=== PATIENT | male | born 1950 | race Caucasian/White ===

== ENCOUNTER → 2016-07-04 | Outpatient (CLI) | payer OTHER ==
[2016-07-04 18:38] LABS: WHITE BLOOD COUNT 10.4 K/mm3 (4.0-10.0)
[2016-07-04 18:39] LABS: MEAN CORPUSCULAR HEMOGLOBIN 26.1 pg (27.0-33.0); MEAN CORPUSCULAR HGB CONC 30.9 g/dl (32.0-36.5); MEAN CORPUSCULAR VOLUME 84.7 fl (80.0-96.0); RED CELL DISTRIBUTION WIDTH 15.5 % (11.5-14.5)
[2016-07-04 19:56] LABS: ANION GAP 10 MEQ/L (8-16); BLOOD UREA NITROGEN 11 MG/DL (7-18); CALCIUM LEVEL 8.4 MG/DL (8.8-10.2); CARBON DIOXIDE LEVEL 29 MEQ/L (21-32); CHLORIDE LEVEL 98 MEQ/L (98-107); CREATININE FOR GFR 0.68 MG/DL (0.70-1.30); GLOMERULAR FILTRATION RATE > 60.0 (>49); GLUCOSE, FASTING 130 MG/DL (80-110); POTASSIUM SERUM 4.4 MEQ/L (3.5-5.1); SODIUM LEVEL 137 MEQ/L (136-145)
== END ==
LOC: M LAB 20:00
PROVIDERS: ATTEND Internal Medicine Hematology & Oncology
DX: I25.10 Atherosclerotic heart disease of native coronary artery without angina pectoris (principal); I48.0 Paroxysmal atrial fibrillation

== ENCOUNTER → 2016-07-04 | Outpatient (CLI) | payer OTHER ==
[2016-07-04 18:38] LABS: MEAN CORPUSCULAR HEMOGLOBIN 26.1 pg (27.0-33.0); MEAN CORPUSCULAR HGB CONC 30.9 g/dl (32.0-36.5); MEAN CORPUSCULAR VOLUME 84.7 fl (80.0-96.0); PLATELET COUNT, AUTOMATED 358 k/mm3 (150-450); RED CELL DISTRIBUTION WIDTH 15.5 % (11.5-14.5); WHITE BLOOD COUNT 10.4 K/mm3 (4.0-10.0)
[2016-07-04 19:58] LABS: ANION GAP 8 MEQ/L (8-16); BLOOD UREA NITROGEN 11 MG/DL (7-18); CALCIUM LEVEL 8.4 MG/DL (8.8-10.2); CARBON DIOXIDE LEVEL 31 MEQ/L (21-32); CHLORIDE LEVEL 98 MEQ/L (98-107); CREATININE FOR GFR 0.72 MG/DL (0.70-1.30); GLOMERULAR FILTRATION RATE > 60.0 (>49); GLUCOSE, FASTING 123 MG/DL (80-110); POTASSIUM SERUM 4.4 MEQ/L (3.5-5.1); SODIUM LEVEL 137 MEQ/L (136-145)
[2016-07-04 20:07] LABS: HYPOCHROMASIA 1+
== END ==
LOC: M LAB 20:00
PROVIDERS: ATTEND Internal Medicine Cardiovascular Disease
DX: I25.10 Atherosclerotic heart disease of native coronary artery without angina pectoris (principal); I48.0 Paroxysmal atrial fibrillation

== ENCOUNTER → 2016-07-28 | Outpatient (REF) | payer OTHER ==
[2016-07-28 18:48] LABS: MEAN CORPUSCULAR HEMOGLOBIN 25.1 pg (27.0-33.0); MEAN CORPUSCULAR HGB CONC 29.9 g/dl (32.0-36.5); RED CELL DISTRIBUTION WIDTH 15.7 % (11.5-14.5); WHITE BLOOD COUNT 10.1 K/mm3 (4.0-10.0)
[2016-07-28 20:13] LABS: ANION GAP 10 MEQ/L (8-16); BLOOD UREA NITROGEN 10 MG/DL (7-18); CALCIUM LEVEL 8.3 MG/DL (8.8-10.2); CARBON DIOXIDE LEVEL 28 MEQ/L (21-32); CHLORIDE LEVEL 101 MEQ/L (98-107); CREATININE FOR GFR 0.91 MG/DL (0.70-1.30); GLOMERULAR FILTRATION RATE > 60.0 (>49); GLUCOSE, FASTING 129 MG/DL (80-110); POTASSIUM SERUM 4.1 MEQ/L (3.5-5.1); SODIUM LEVEL 139 MEQ/L (136-145)
== END ==
LOC: M LAB REF 16:57
PROVIDERS: ATTEND Internal Medicine Hematology & Oncology
DX: C49.3 Malignant neoplasm of connective and soft tissue of thorax (principal); D64.1 Secondary sideroblastic anemia due to disease; E11.9 Type 2 diabetes mellitus without complications; J91.0 Malignant pleural effusion

== ENCOUNTER → 2016-09-07 | Outpatient (REF) | payer OTHER ==
[2016-09-07 18:31] LABS: ANION GAP 6 MEQ/L (8-16); BLOOD UREA NITROGEN 12 MG/DL (7-18); CALCIUM LEVEL 8.4 MG/DL (8.8-10.2); CARBON DIOXIDE LEVEL 33 MEQ/L (21-32); CHLORIDE LEVEL 98 MEQ/L (98-107); CREATININE FOR GFR 0.83 MG/DL (0.70-1.30); GLOMERULAR FILTRATION RATE > 60.0 (>49); GLUCOSE, FASTING 170 MG/DL (80-110); POTASSIUM SERUM 4.2 MEQ/L (3.5-5.1); SODIUM LEVEL 137 MEQ/L (136-145)
[2016-09-07 19:40] LABS: MEAN CORPUSCULAR HEMOGLOBIN 25.8 pg (27.0-33.0); MEAN CORPUSCULAR HGB CONC 31.3 g/dl (32.0-36.5); MEAN CORPUSCULAR VOLUME 82.6 fl (80.0-96.0); RED CELL DISTRIBUTION WIDTH 15.5 % (11.5-14.5); WHITE BLOOD COUNT 10.1 K/mm3 (4.0-10.0)
== END ==
LOC: M LAB REF 16:46
PROVIDERS: ATTEND Internal Medicine Hematology & Oncology
DX: C49.3 Malignant neoplasm of connective and soft tissue of thorax (principal); D64.1 Secondary sideroblastic anemia due to disease; E11.9 Type 2 diabetes mellitus without complications; J91.0 Malignant pleural effusion

== ENCOUNTER → 2016-11-02 | Outpatient (REF) | payer OTHER ==
[2016-11-02 15:14] LABS: BASO % 0.5 % (0.0-1.0); EOS # 0.2 K/mm3 (0.0-0.50); EOS % 1.7 % (0.0-3.0); LARGE UNSTAINED CELL # 0.1 K/mm3 (0.0-0.4); LARGE UNSTAINED CELL % 0.6 % (0.0-4.0); LYMPH # 0.9 K/mm3 (1.5-4.5); LYMPH % 8.7 % (24.0-44.0); MEAN CORPUSCULAR HEMOGLOBIN 26.3 pg (27.0-33.0); MEAN CORPUSCULAR HGB CONC 32.2 g/dl (32.0-36.5); MEAN CORPUSCULAR VOLUME 81.8 fl (80.0-96.0); MONO # 0.5 K/mm3 (0.0-0.8); MONO % 5.1 % (0.0-5.0); NEUTROPHILS # 7.6 K/mm3 (1.8-7.7); NEUTROPHILS % 83.3 % (36.0-66.0); PLATELET COUNT, AUTOMATED 368 k/mm3 (150-450); WHITE BLOOD COUNT 9.2 K/mm3 (4.0-10.0)
[2016-11-02 15:33] LABS: ALBUMIN 2.4 GM/DL (3.2-5.2); ALBUMIN/GLOBULIN RATIO 0.62 (1.00-1.93); ALKALINE PHOSPHATASE 174 U/L (45-117); ALT/SGPT 24 U/L (12-78); ANION GAP 7 MEQ/L (8-16); AST/SGOT 21 U/L (15-37); BILIRUBIN,TOTAL 0.3 MG/DL (0.2-1.0); BLOOD UREA NITROGEN 6 MG/DL (7-18); CALCIUM LEVEL 8.3 MG/DL (8.8-10.2); CARBON DIOXIDE LEVEL 30 MEQ/L (21-32); CHLORIDE LEVEL 102 MEQ/L (98-107); CREATININE FOR GFR 0.67 MG/DL (0.70-1.30); GLOMERULAR FILTRATION RATE > 60.0 (>49); GLUCOSE, FASTING 90 MG/DL (80-110); POTASSIUM SERUM 4.3 MEQ/L (3.5-5.1); SODIUM LEVEL 139 MEQ/L (136-145); TOTAL PROTEIN 6.3 GM/DL (6.4-8.2)
== END ==
LOC: M LAB REF 14:59
PROVIDERS: ATTEND Internal Medicine Hematology & Oncology
DX: C49.5 Malignant neoplasm of connective and soft tissue of pelvis (principal); D63.0 Anemia in neoplastic disease

== ENCOUNTER 2016-11-29 14:50 | Inpatient (IN) | payer OTHER ==
[~2016-11-29] VITALS: Ht 170.2 cm; Wt 121.4 kg
[2016-11-29] MEDS ORDERED: DRON5CAP6 PO (15:06)
[2016-11-29] MEDS ORDERED: ROPI0.25 PO ×2 (15:06→18:25)
[2016-11-29] MEDS ORDERED: ZOLP10TA2 PO ×2 (15:06→18:25)
[2016-11-29] MEDS ORDERED: MORP15TA2 PO ×2 (15:06→18:09)
[2016-11-29] MEDS ORDERED: ATOR40TA PO ×2 (15:06→18:25)
[2016-11-29] MEDS ORDERED: TRAZ100T4 PO ×2 (15:06→18:25)
[2016-11-29] MEDS ORDERED: METO-346 PO (15:06)
[2016-11-29] MEDS ORDERED: LOSA25TA8 PO ×2 (15:06→18:25)
[2016-11-29] MEDS ORDERED: DIGO0.25 PO ×2 (15:06→18:25)
[2016-11-29] MEDS ORDERED: DIAZ10TA2 PO ×2 (15:06→18:25)
[2016-11-29] MEDS ORDERED: FURO40TA2 PO (15:06)
[2016-11-29] MEDS ORDERED: MELO15TA4 PO ×2 (15:06→18:25)
[2016-11-29] MEDS ORDERED: QUET1TAB8 PO ×2 (15:06→18:25)
[2016-11-29] MEDS ORDERED: ONDA8TAB8 PO (15:06)
[2016-11-29] MEDS ORDERED: PROC10TA PO ×2 (15:06→18:07)
[2016-11-29] MEDS ORDERED: METR500T10 PO (15:06)
[2016-11-29] MEDS ORDERED: CLOP75TA2 PO ×2 (15:06→18:25)
[2016-11-29] MEDS ORDERED: NS 500 ML IV ONE (15:30)
[2016-11-29] MEDS ORDERED: METOPROLOL 5 MG/5 ML VIAL IV STA (16:08)
[2016-11-29 16:35] LABS: BASO % 0.3 % (0.0-1.0); EOS # 0.1 K/mm3 (0.0-0.50); EOS % 0.5 % (0.0-3.0); LARGE UNSTAINED CELL # 0.1 K/mm3 (0.0-0.4); LARGE UNSTAINED CELL % 0.5 % (0.0-4.0); LYMPH # 0.6 K/mm3 (1.5-4.5); LYMPH % 3.4 % (24.0-44.0); MEAN CORPUSCULAR HGB CONC 32.2 g/dl (32.0-36.5); MEAN CORPUSCULAR VOLUME 80.6 fl (80.0-96.0); MONO # 0.5 K/mm3 (0.0-0.8); MONO % 2.7 % (0.0-5.0); NEUTROPHILS # 15.5 K/mm3 (1.8-7.7); NEUTROPHILS % 92.6 % (36.0-66.0); PLATELET COUNT, AUTOMATED 353 k/mm3 (150-450); RED CELL DISTRIBUTION WIDTH 16.5 % (11.5-14.5); WHITE BLOOD COUNT 16.7 K/mm3 (4.0-10.0)
[2016-11-29 16:42] LABS: OSMOLALITY SERUM 295 MOSM/KG (280-301)
[2016-11-29 16:53] LABS: ALBUMIN/GLOBULIN RATIO 0.79 (1.00-1.93); ALKALINE PHOSPHATASE 156 U/L (45-117); ALT/SGPT 12 U/L (12-78); ANION GAP 5 MEQ/L (8-16); AST/SGOT 8 U/L (15-37); BILIRUBIN,DIRECT 0.2 MG/DL (0.0-0.2); BILIRUBIN,TOTAL 0.6 MG/DL (0.2-1.0); BLOOD UREA NITROGEN 21 MG/DL (7-18); CALCIUM LEVEL 8.8 MG/DL (8.8-10.2); CARBON DIOXIDE LEVEL 31 MEQ/L (21-32); CHLORIDE LEVEL 102 MEQ/L (98-107); CREATININE FOR GFR 1.04 MG/DL (0.70-1.30); GLOMERULAR FILTRATION RATE > 60.0 (>49); GLUCOSE, FASTING 111 MG/DL (80-110); POTASSIUM SERUM 4.1 MEQ/L (3.5-5.1); SODIUM LEVEL 138 MEQ/L (136-145); TOTAL PROTEIN 6.8 GM/DL (6.4-8.2)
[2016-11-29 17:02] LABS: METHADONE URINE NEGATIVE (NEGATIVE)
[2016-11-29] MEDS ORDERED: ZOSYN 3.375 GM VIAL (J2543) As Ordered ONE (17:27)
[2016-11-29] MEDS ORDERED: VANCOMYCIN HCL 1,000 MG, VIAL MATE ADAPTER 1 EACH in D5W 250 ML IV ONE (17:30)
[2016-11-29] MEDS ORDERED: PIPERACILLIN/TAZOBACTAM SOD 3.375 GM in D5W MINI-BAG PLUS 50 ML IV ONE (17:30)
[2016-11-29] MEDS ORDERED: NS 1,000 ML IV SCH (17:30)
[2016-11-29] MEDS ORDERED: ISOVUE-370 76% 100ML VIAL (Q9967) As Ordered ONE (17:37)
[2016-11-29] MEDS ORDERED: MARI5CAP PO (18:07)
[2016-11-29] MEDS ORDERED: METO12TA PO (18:24)
[2016-11-29] MEDS ORDERED: ZOFR8TAB4 PO (18:25)
[2016-11-29] MEDS ORDERED: LASI40TA PO (18:25)
[2016-11-29] MEDS ORDERED: NORCO, ANEXSIA 5/325MG TABLET (HYDROcodone/ACETAMINOPHEN) PO PRN (19:00)
[2016-11-29] MEDS ORDERED: MORPHINE 2 MG/ML 1ML SYRINGE IV PRN (19:00)
[2016-11-29] MEDS ORDERED: ACETAMINOPHEN TAB 650MG DOSE (2X325MG) PO PRN (19:00)
[2016-11-29] MEDS ORDERED: ONDANSETRON 4 MG ORAL DISINTEGRATING TAB (S0181) PO PRN (19:00)
[2016-11-29] MEDS ORDERED: NALOXONE INJ 0.4 MG/1 ML VIAL (J2310) IV PRN (19:00)
[2016-11-29] MEDS ORDERED: diazePAM 10 MG TAB PO PRN (19:00)
[2016-11-29] MEDS ORDERED: zolPIDEM TARTRATE 10MG TAB PO PRN (19:00)
[2016-11-29] MEDS ORDERED: PROCHLORPERAZINE 5 MG TAB (S0183) PO PRN (19:00)
[2016-11-29] MEDS ORDERED: ONDANSETRON 4MG/2ML VIAL (J2405) IV PRN (19:00)
[2016-11-29] MEDS: NS 1,000 ML IV SCH (20:00)
[2016-11-29] MEDS ORDERED: QUEtiapine FUMARATE 100 MG TAB PO SCH (21:00)
[2016-11-29] MEDS ORDERED: traZODone 100 MG TAB PO SCH (21:00)
[2016-11-29 21:54] VITALS: BP 158/72
[2016-11-29 22:04] VITALS: BP 158/72
[2016-11-29] MEDS: METOPROLOL TART 25 MG TABLET PO SCH (22:04)
[2016-11-29] MEDS: rOPINIRole 0.25 MG TAB(REQUIP) PO SCH (23:42)
[2016-11-30] MEDS ORDERED: VANCOMYCIN HCL 1,000 MG, VIAL MATE ADAPTER 1 EACH in D5W 250 ML IV ONE ×3
[2016-11-30 00:14] VITALS: BP 128/65
[2016-11-30] MEDS ORDERED: PIPERACILLIN/TAZOBACTAM SOD 3.375 GM in D5W MINI-BAG PLUS 50 ML IV SCH (04:00)
[2016-11-30 04:15] VITALS: BP 121/64
[2016-11-30 06:37] LABS: MEAN CORPUSCULAR HEMOGLOBIN 25.9 pg (27.0-33.0); MEAN CORPUSCULAR HGB CONC 31.2 g/dl (32.0-36.5); RED CELL DISTRIBUTION WIDTH 16.6 % (11.5-14.5); WHITE BLOOD COUNT 8.2 K/mm3 (4.0-10.0)
[2016-11-30 07:05] LABS: ALBUMIN 2.5 GM/DL (3.2-5.2); ALBUMIN/GLOBULIN RATIO 0.76 (1.00-1.93); ALKALINE PHOSPHATASE 141 U/L (45-117); ALT/SGPT 12 U/L (12-78); ANION GAP 3 MEQ/L (8-16); AST/SGOT 11 U/L (15-37); BILIRUBIN,TOTAL 0.5 MG/DL (0.2-1.0); BLOOD UREA NITROGEN 18 MG/DL (7-18); CALCIUM LEVEL 8.4 MG/DL (8.8-10.2); CARBON DIOXIDE LEVEL 33 MEQ/L (21-32); CHLORIDE LEVEL 107 MEQ/L (98-107); CREATININE FOR GFR 1.05 MG/DL (0.70-1.30); GLOMERULAR FILTRATION RATE > 60.0 (>49); GLUCOSE, FASTING 117 MG/DL (80-110); MAGNESIUM LEVEL 2.3 MG/DL (1.8-2.4); POTASSIUM SERUM 3.8 MEQ/L (3.5-5.1); SODIUM LEVEL 143 MEQ/L (136-145); TOTAL PROTEIN 5.8 GM/DL (6.4-8.2)
[2016-11-30 07:55] VITALS: BP 144/65
[2016-11-30] MEDS ORDERED: DRONABINOL 2.5 MG CAP (MARINOL) PO SCH (09:00)
[2016-11-30] MEDS ORDERED: DIGOXIN 0.25 MG TAB PO SCH (09:00)
[2016-11-30] MEDS ORDERED: MELOXICAM (MOBIC) 7.5 MG TAB PO SCH (09:00)
[2016-11-30] MEDS ORDERED: CLOPIDOGREL 75 MG TAB PO SCH (09:00)
[2016-11-30] MEDS ORDERED: VANCOMYCIN HCL 1,000 MG, VIAL MATE ADAPTER 1 EACH in D5W 250 ML IV SCH (10:00)
[2016-11-30] MEDS: METOPROLOL TART 25 MG TABLET PO SCH (10:11)
[2016-11-30] MEDS: NS 1,000 ML IV SCH (10:15)
[2016-11-30] MEDS: rOPINIRole 0.25 MG TAB(REQUIP) PO SCH (10:17)
[2016-11-30] MEDS ORDERED: ATORVASTATIN 20 MG TAB PO SCH (21:00)
== END 2016-11-30 11:58 | disposition left against medical advice (07) | DRG 177 ==
LOC: EDBD 14:50 → M ED 16:24 → M ED INP 18:56 → M PCU 21:33
PROVIDERS: ADMIT Internal Medicine; ATTEND Internal Medicine
DX: J86.9 Pyothorax without fistula (principal); J18.9 Pneumonia, unspecified organism; G93.41 Metabolic encephalopathy; N17.9 Acute kidney failure, unspecified; C79.89 Secondary malignant neoplasm of other specified sites; I25.10 Atherosclerotic heart disease of native coronary artery without angina pectoris; I10 Essential (primary) hypertension; F32.9 Major depressive disorder, single episode, unspecified; F41.9 Anxiety disorder, unspecified; G25.81 Restless legs syndrome; I25.2 Old myocardial infarction; Z95.9 Presence of cardiac and vascular implant and graft, unspecified; Z92.21 Personal history of antineoplastic chemotherapy; Z92.3 Personal history of irradiation; Z79.899 Other long term (current) drug therapy

== ENCOUNTER 2017-01-10 09:48 | Emergency (ER) | payer OTHER ==
[~2017-01-10] VITALS: Ht 170.2 cm; Wt 113.6 kg
[~2017-01-10 09:48] MED LIST: ATOR40TA75 PO; CLOP75TA2 PO; DIAZ10TA2 PO; DIGO0.25 PO; DRON5CAP6 PO; FURO40TA2 PO; LASI40TA PO; LOSA25TA8 PO; MARI5CAP PO; MELO15TA4 PO; METO-346 PO; METO1TAB87 PO; METR1TAB66 PO; MORP15TA2 PO; ONDA8TAB8 PO; PROC10TA PO; QUET1TAB8 PO; ROPI0.25 PO; TRAZ-136 PO; ZOFR8TAB4 PO; ZOLP10TA2 PO
[2017-01-10] MEDS ORDERED: ASPIRIN 81 MG CHEW TABLET PO ONE (10:30)
[2017-01-10] MEDS ORDERED: NS 1,000 ML IV ONE (10:30)
[2017-01-10] MEDS ORDERED: METOPROLOL TART 25 MG TABLET PO ONE (10:30)
[2017-01-10] MEDS: METOPROLOL 5 MG/5 ML VIAL IV SCH ×3 (11:01→14:03)
[2017-01-10 11:02] LABS: BASO # 0.1 K/mm3 (0.0-0.2); BASO % 0.9 % (0.0-1.0); EOS # 0.1 K/mm3 (0.0-0.50); LARGE UNSTAINED CELL # 0.1 K/mm3 (0.0-0.4); LYMPH # 0.5 K/mm3 (1.5-4.5); LYMPH % 3.3 % (24.0-44.0); MEAN CORPUSCULAR HEMOGLOBIN 26.9 pg (27.0-33.0); MEAN CORPUSCULAR HGB CONC 32.2 g/dl (32.0-36.5); MEAN CORPUSCULAR VOLUME 83.7 fl (80.0-96.0); MONO # 0.7 K/mm3 (0.0-0.8); MONO % 6.1 % (0.0-5.0); NEUTROPHILS % 87.6 % (36.0-66.0); PLATELET COUNT, AUTOMATED 256 k/mm3 (150-450); RED CELL DISTRIBUTION WIDTH 16.8 % (11.5-14.5); WHITE BLOOD COUNT 11.4 K/mm3 (4.0-10.0)
[2017-01-10 11:32] LABS: ALBUMIN 2.8 GM/DL (3.2-5.2); ALBUMIN/GLOBULIN RATIO 0.72 (1.00-1.93); ALKALINE PHOSPHATASE 140 U/L (45-117); ALT/SGPT 12 U/L (12-78); ANION GAP 8 MEQ/L (8-16); AST/SGOT 14 U/L (15-37); BILIRUBIN,DIRECT 0.3 MG/DL (0.0-0.2); BILIRUBIN,TOTAL 0.8 MG/DL (0.2-1.0); BLOOD UREA NITROGEN 8 MG/DL (7-18); CALCIUM LEVEL 8.7 MG/DL (8.8-10.2); CARBON DIOXIDE LEVEL 27 MEQ/L (21-32); CHLORIDE LEVEL 100 MEQ/L (98-107); CREATININE FOR GFR 0.67 MG/DL (0.70-1.30); GLOMERULAR FILTRATION RATE > 60.0 (>49); GLUCOSE, FASTING 120 MG/DL (80-110); POTASSIUM SERUM 4.1 MEQ/L (3.5-5.1); SODIUM LEVEL 135 MEQ/L (136-145); TOTAL PROTEIN 6.7 GM/DL (6.4-8.2)
--- NOTE | 2017-01-10 12:13 | REP ---
REASON: Chest pain. COMPARISON: 11/29/2016 The technique utilized in obtaining the radiograph has magnified the cardiac silhouette and accentuated the interstitial markings. The right lung opacity seen previously is unchanged. The central venous catheter tip remains in the superior vena cava. The cardiomediastinal silhouette is unchanged. The left lung is stable. There is no change in the osseous structures. IMPRESSION: No change. Signed by Chavez Harley DO 01/10/2017 12:42 P
[2017-01-10 14:03] VITALS: BP 102/56
[2017-01-10] MEDS ORDERED: ENOXAPARIN 120 MG/0.8 ML SYR (J1650) SC ONE (14:15)
[2017-01-10 14:22] VITALS: BP 93/51
[2017-01-10] MEDS ORDERED: METO50TA7 PO (14:23)
--- NOTE | 2017-01-10 19:32 | ECGEPIP ---
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
== END 2017-01-10 15:14 | disposition home or self-care (01) ==
LOC: M ED 09:48
DX: I48.91 Unspecified atrial fibrillation (principal); C79.89 Secondary malignant neoplasm of other specified sites; I10 Essential (primary) hypertension; I25.10 Atherosclerotic heart disease of native coronary artery without angina pectoris; Z98.61 Coronary angioplasty status
CPT/HCPCS: 71010; 80048; 80076; 82550; 82553; 83880; 85025; 93005; 93041; 94760; 96372; 96374; 96375; 99285; J1650

== ENCOUNTER 2017-02-14 17:23 | Inpatient (IN) | payer OTHER ==
[~2017-02-14] VITALS: Ht 170.2 cm; Wt 108.5 kg
[~2017-02-14 17:23] MED LIST changes: +METO50TA7 PO
[2017-02-14] MEDS ORDERED: ASPI81CH PO (17:54)
[2017-02-14] MEDS ORDERED: FLAG250T TOP (17:54)
[2017-02-14] MEDS ORDERED: MARIJUANA (17:54)
[2017-02-14] MEDS ORDERED: ROPI1TAB PO (17:54)
[2017-02-14] MEDS ORDERED: GABA800T PO (17:54)
[2017-02-14 18:24] LABS: VENOUS BASE EXCESS 4.2 (-2.0-2.0); VENOUS O2 SATURATION 92.2 % (60.0-80.0); VENOUS PARTIAL PRESSURE CO2 55.6 mmHg (38.0-50.0); VENOUS PARTIAL PRESSURE O2 71.5 mmHg (30.0-50.0); VENOUS STANDARD HCO3 28.1 MEQ/L; VENOUS TOTAL CO2 32.2 MEQ/L (24.0-28.0)
[2017-02-14 18:28] LABS: BASO % 0.2 % (0.0-1.0); EOS # 0.1 K/mm3 (0.0-0.50); EOS % 0.9 % (0.0-3.0); LARGE UNSTAINED CELL # 0.1 K/mm3 (0.0-0.4); LARGE UNSTAINED CELL % 1.2 % (0.0-4.0); LYMPH # 0.4 K/mm3 (1.5-4.5); LYMPH % 4.6 % (24.0-44.0); MEAN CORPUSCULAR HEMOGLOBIN 27.5 pg (27.0-33.0); MEAN CORPUSCULAR HGB CONC 31.3 g/dl (32.0-36.5); MEAN CORPUSCULAR VOLUME 87.7 fl (80.0-96.0); MONO # 0.5 K/mm3 (0.0-0.8); MONO % 6.1 % (0.0-5.0); PLATELET COUNT, AUTOMATED 286 k/mm3 (150-450)
[2017-02-14 18:51] LABS: ALBUMIN 2.2 GM/DL (3.2-5.2); ALBUMIN/GLOBULIN RATIO 0.58 (1.00-1.93); ALKALINE PHOSPHATASE 137 U/L (45-117); ALT/SGPT 9 U/L (12-78); ANION GAP 8 MEQ/L (8-16); AST/SGOT 10 U/L (15-37); BILIRUBIN,DIRECT 0.3 MG/DL (0.0-0.2); BILIRUBIN,TOTAL 0.6 MG/DL (0.2-1.0); BLOOD UREA NITROGEN 8 MG/DL (7-18); CALCIUM LEVEL 8.1 MG/DL (8.8-10.2); CARBON DIOXIDE LEVEL 30 MEQ/L (21-32); CHLORIDE LEVEL 100 MEQ/L (98-107); CREATININE FOR GFR 0.54 MG/DL (0.70-1.30); GLOMERULAR FILTRATION RATE > 60.0 (>49); GLUCOSE, FASTING 105 MG/DL (80-110); POTASSIUM SERUM 4.2 MEQ/L (3.5-5.1); SODIUM LEVEL 138 MEQ/L (136-145)
--- NOTE | 2017-02-14 18:51 | REP ---
Clinical: Chest pain. Altered mental status. Technique: AP and cross-table lateral. Comparison: 02/01/2017. Findings: Large opacification involving much of the right hemithorax as well as left perihilar increased markings suggest pleural effusion and pulmonary vascular congestion. Underlying atelectasis cannot be excluded. No obvious pneumothorax. Visualized portions of the cardiac silhouette suggest stable cardiomegaly. Postsurgical changes involving the right hemithorax noted along with Fjujmu-H-Ikel extending to the SVC/right atrium. Impression: 1. Large opacification involving the right hemithorax similar to prior examination. 2. Increased left perihilar markings suggest the possibility of pulmonary vascular congestion along with minimal left basilar atelectasis which may represent a new finding when compared to prior examination. Signed by Sal Lugo MD 02/14/2017 06:42 P
[2017-02-14] MEDS: NS 1,000 ML IV SCH (18:54)
--- NOTE | 2017-02-14 18:55 | REP ---
Clinical: Altered mental status. Comparison: 11/29/2016 . Findings: Age-related atrophy and microvascular ischemic changes are appreciated. The ventricles and sulci are symmetric. García-white differentiation is maintained. There is no evidence for acute intracranial hemorrhage, mass/mass effect, pathology or infarction. No extra-axial fluid collection. Calvarium is intact. Paranasal sinuses and mastoid air cells are clear. Impression: Age related atrophy and microvascular ischemic changes. No acute intracranial hemorrhage, infarction, or mass/mass effect. Signed by Sal Lugo MD 02/14/2017 06:46 P
[2017-02-14] MEDS ORDERED: ASPI1TAB PO (19:07)
[2017-02-14] MEDS ORDERED: METO50TA7 PO (19:08)
[2017-02-14] MEDS ORDERED: PATIENT COMMENT (19:08)
[2017-02-14] MEDS ORDERED: PROC10TA PO (19:08)
[2017-02-14] MEDS ORDERED: ALBU17IN INH (19:08)
[2017-02-14 20:36] LABS: INR 1.09
[2017-02-14] MEDS ORDERED: ACETAMINOPHEN TAB 650MG DOSE (2X325MG) PO PRN (20:45)
[2017-02-14] MEDS ORDERED: diazePAM 10 MG TAB PO PRN (20:45)
[2017-02-14] MEDS ORDERED: PERCOCET 5MG/325MG TAB PO PRN (20:45)
[2017-02-14] MEDS ORDERED: MORPHINE 2 MG/ML 1ML SYRINGE IV PRN (20:45)
[2017-02-14] MEDS ORDERED: PROCHLORPERAZINE 5 MG TAB (S0183) PO PRN (20:45)
[2017-02-14] MEDS ORDERED: ALBUTEROL 90 MCG/ACT 8GM HFA INHALER INH PRN (20:45)
[2017-02-14] MEDS ORDERED: METOPROLOL 5 MG/5 ML VIAL IV STA (20:52)
[2017-02-14] MEDS ORDERED: GABAPENTIN 400 MG CAP PO SCH (21:00)
[2017-02-14] MEDS: METOPROLOL TART 50 MG TAB PO SCH (21:00)
[2017-02-14] MEDS ORDERED: NS 500 ML IV ONE (21:00)
[2017-02-14] MEDS ORDERED: GABAPENTIN 300 MG CAP PO SCH (21:00)
[2017-02-14] MEDS: SENOKOT S TAB PO SCH ×2 (21:00→22:54)
[2017-02-14 21:05] LABS: METHADONE URINE NEGATIVE (NEGATIVE)
--- NOTE | 2017-02-14 21:47 | HPE ---
DATE OF ADMISSION: 02/14/2017 PRIMARY CARE PROVIDER: None. ONCOLOGIST: Dr. Nixon. CHIEF COMPLAINT: Lethargy, altered mental status. 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 Oncologist is Dr. Nixon in [place]. The patient was brought to the hospital because the patient initially was okay, has had a day of outing with the family. During the course of the day, the patient was getting progressively more somnolent. Subsequently emergency medical services (EMS) was called to bring the patient to the hospital. The patient is on opiates and benzodiazepines. In the emergency department (ED), the patient intermittently wakes up, and when the patient is awake, the patient is alert and oriented times three, but when the patient is sleeping, the patient is arousable but not really answering much question. The patient is a poor historian at baseline. The patient just reported sleepy. As per family, because of the sarcoma wound on the patient's back, the patient is only able to sleep sitting up. The patient denies any chest pain, pressure, discomfort, palpitations. Does have a history of atrial fibrillation. As per patient, he takes beta blockers for it. Furthermore, the receives visiting nurse service for the wound in the back. The patient denies any chest pain, pressure, discomfort, fevers, chills, coughing, shortness of breath. Baseline on oxygen at home. Was found by EMS with a saturation of 86%. The patient denies any abdominal pain, diarrhea, constipation. Denies any nausea or vomiting. The patient stated that he feels well otherwise. Initially goals of care were discussed with family. Family would not like to consider hospice, but initially believes the patient would like to be DO NOT RESUSCITATE (DNR), DO NOT INTUBATE (DNI), but after the patient is more awake. After speaking with the patient, the patient stated that he would like to find out what is going on, why is he getting sleepy and would like to be FULL CODE for the moment until further information is provided. Nursing staff, Jenny, is at the bedside to verify this. Therefore, the patient is aware that if he stops breathing or his heart stops, cardiopulmonary resuscitation (CPR) will be performed and patient will be intubated, connected to a ventilator machine. The patient is agreeable and believes that he will not end up to that point overnight. PAST MEDICAL HISTORY: 1. Restless legs. 2. Depression/anxiety. 3. Dyslipidemia. 4. Hypertension. 5. Poor oral intake. 6. Failure to thrive. 7. STEMI. 8. Metastatic sarcoma. PAST SURGICAL HISTORY: 1. Multiple wrist, knee, and ankle surgeries. 2. Sarcoma lesion noted in the thoracic area, status post thoracoscopy. FAMILY HISTORY: Noncontributory. SOCIAL HISTORY: Limited secondary to patient's intermittent lethargy. REVIEW OF SYSTEMS: The patient reported increased lethargy. All other review of systems is negative. Significantly limited because the patient was intermittently somnolent. HOME MEDICATIONS: - Ventolin inhaler two puffs inhalation every four hours as needed - aspirin 81 mg by mouth daily - Valium 10 mg by mouth every eight hours as needed - Marinol 5 mg by mouth twice a day - gabapentin 800 mg by mouth three times a day - metoprolol 50 mg by mouth twice a day - Flagyl 250 mg topical daily - morphine 15 mg by mouth every six hours as needed - Zofran 8 mg by mouth every eight hours as needed - prochlorperazine 10 mg by mouth every six hours as needed - Requip 1 mg by mouth three times a day PHYSICAL EXAMINATION: VITAL SIGNS: Temperature 98, pulse 77, respirations 18, blood pressure 118/57, pulse oximetry 100% on two liters nasal cannula. LABORATORY DATA: WBC eight, hemoglobin and hematocrit 8.6 over 27.4, platelets 286. Chemistry: Sodium 138, potassium 4.2, chloride 100, bicarbonate 30, BUN eight, creatinine 0.5. Cardiac enzymes negative times one. Ammonia negative. ASSESSMENT AND PLAN: This is a 66-year-old male patient with underlying medical history of atrial fibrillation, restless leg syndrome, depression/anxiety, dyslipidemia, hypertension, coronary arterial disease with ST elevation myocardial infarction with stent placement, metastatic sarcoma diagnosed three years ago, not undergoing any chemotherapy or radiation due to poor prognosis and severe deconditioning, admitted for altered mental status and increased lethargy. 1. Altered mental status and increased lethargy: Possibly secondary to underlying infection versus metastatic cancer, versus opioids and benzodiazepines. Followup urine toxicology (UTOX). Will monitor the patient closely. Intravenous (IV) hydration given. Followup cultures. Urinalysis (UA) and urine culture. Chest x-ray was obtained and showed no significant change but with significant right-sided opacity. CT scan has been ordered. Hold off antibiotics until further information is obtained. IV fluids for hydration. Will get MRI with and without contrast, and MRA of the brain and carotid Doppler. The patient's gabapentin has been discontinued. Opioid has been on hold. Will give benzodiazepine as needed, only at patient request. Followup UTOX. Electroencephalogram (EEG). 2. Metastatic sarcoma. Patient at end stage of his disease. Wound care for the back. Flagyl application to the back as the patient was doing at home. Will get CT with contrast of the patient's chest to do further workup of patient's lung lesion, and will get MRI with and without contrast of the brain. Poor overall prognosis. 3. Coronary arterial disease. Continue aspirin. Followup cardiac enzymes. Electrocardiogram (EKG). Continue beta virgil. 4. Atrial fibrillation with rapid ventricular response. Will give additional beta blockers. athletic monitor. Trend cardiac enzymes. Given patient's somnolence, would elect not to do anticoagulation. 5. Hypertension. Continue Lopressor. Monitor blood pressure. 6. Depression and anxiety. Continue benzodiazepine as needed. 7. Restless leg syndrome. Continue Requip. 8. Deep venous thrombosis (DVT) prophylaxis. Lovenox subcutaneous. DISPOSITION: Pending further workup. Poor overall prognosis. Initially discussed with the patient's brother who believes that the patient might want DNR/DNI, but when the patient is more awake, upon further discussion, the patient stated that he would like to be worked up for his altered mental status. He is aware of his poor prognosis, but currently at this moment, he is not ready to do the Medical Orders for Life-Sustaining Treatment (MOLST) form for DNR/DNI. The patient is aware that he will remain full code, which means CPR will be performed and patient will be intubated and connected to a ventilator machine in the event that the patient goes into respiratory failure or in the event that patient goes into cardiac arrest. We will place the patient on continuous pulse oximetry, athletic monitor, frequent neurologic checks.
--- NOTE | 2017-02-14 21:50 | REP ---
Clinical: Shortness of breath. Technique: Axial contrast enhanced images from the thoracic inlet to the upper abdomen using 100 ml Isovue 370 intravenous contrast material with multiplanar re-formations. Comparison: 11/29/2016. Findings: A large heterogeneously enhancing multilobulated, partially necrotic mass encompasses much of the right lung with postobstructive scattered atelectasis and scattered bilateral satellite nodules and metastases as well as mediastinal and bilateral hilar adenopathy. Diffusely increased interstitial markings noted bilaterally may also reflect lymphangitic carcinomatosis. Extension of the heterogeneous multiloculated necrotic mass lesion is identified involving the right posterolateral chest wall and findings appear to be increased when compared to prior examination. A small to moderate pericardial effusion is also identified which is increased from prior examination and concerning for malignant effusion. Left adrenal metastatic focus measures 2.9 cm and is unchanged from prior examination. Osseous structures demonstrate degenerative changes as well as postsurgical changes involving the right chest wall. Impression: 1. Large multilobulated partially necrotic heterogeneously enhancing right lung mass with extension through the right posterolateral chest wall as well as bilateral metastatic foci and mediastinal/bilateral hilar adenopathy. Diffusely increased interstitial markings noted bilaterally suggests associated lymphangitic carcinomatosis. Findings appear to be increased when compared to 11/29/2016. 2. 2.9 cm left adrenal metastatic focus unchanged. Signed by Sal Lugo MD 02/14/2017 09:41 P
[2017-02-14 22:11] VITALS: BP 106/69
[2017-02-14 22:21] VITALS: BP 110/71
[2017-02-14] MEDS ORDERED: METOPROLOL TART 25 MG TABLET PO ONE (22:30)
[2017-02-14] MEDS: DRONABINOL 2.5 MG CAP (MARINOL) PO SCH (22:54)
[2017-02-14] MEDS: rOPINIRole 1MG TAB PO SCH (22:54)
[2017-02-14 23:00] VITALS: BP 104/53
[2017-02-14 23:51] LABS: ABG BASE EXCESS 5.5 (-2.0-2.0); ABG HCO3 30.9 MEQ/L (22.0-26.0); ABG PARTIAL PRESSURE O2 112.1 mmHg (75.0-100.0); ABG STANDARD HCO3 29.4 MEQ/L (22.0-26.0); ABG TOTAL CO2 32.4 MEQ/L (23.0-31.0); ABG pH (ARTERIAL) 7.409 UNITS (7.350-7.450)
[2017-02-15] VITALS (17 sets, daily range): BP systolic 90–148; BP diastolic 51–81; O2SAT 97–98
[2017-02-15] MEDS: NS 1,000 ML IV SCH ×2 (03:45→17:53)
[2017-02-15 06:16] LABS: MEAN CORPUSCULAR HEMOGLOBIN 27.4 pg (27.0-33.0); MEAN CORPUSCULAR HGB CONC 31.1 g/dl (32.0-36.5); MEAN CORPUSCULAR VOLUME 88.1 fl (80.0-96.0); WHITE BLOOD COUNT 7.3 K/mm3 (4.0-10.0)
[2017-02-15 06:58] LABS: ALBUMIN/GLOBULIN RATIO 0.54 (1.00-1.93); ALKALINE PHOSPHATASE 130 U/L (45-117); ALT/SGPT 8 U/L (12-78); ANION GAP 9 MEQ/L (8-16); AST/SGOT 9 U/L (15-37); BILIRUBIN,TOTAL 0.5 MG/DL (0.2-1.0); BLOOD UREA NITROGEN 6 MG/DL (7-18); CALCIUM LEVEL 8.1 MG/DL (8.8-10.2); CARBON DIOXIDE LEVEL 29 MEQ/L (21-32); CHLORIDE LEVEL 104 MEQ/L (98-107); CREATININE FOR GFR 0.45 MG/DL (0.70-1.30); GLOMERULAR FILTRATION RATE > 60.0 (>49); GLUCOSE, FASTING 98 MG/DL (80-110); MAGNESIUM LEVEL 2.1 MG/DL (1.8-2.4); POTASSIUM SERUM 4.2 MEQ/L (3.5-5.1); SODIUM LEVEL 142 MEQ/L (136-145); TOTAL PROTEIN 5.7 GM/DL (6.4-8.2)
[2017-02-15] MEDS: DRONABINOL 2.5 MG CAP (MARINOL) PO SCH ×2 (08:38→21:03)
[2017-02-15] MEDS: rOPINIRole 1MG TAB PO SCH ×3 (08:38→20:59)
[2017-02-15] MEDS: ASPIRIN 81 MG ENTERIC TAB PO SCH (08:38)
[2017-02-15] MEDS: METOPROLOL TART 50 MG TAB PO SCH ×2 (08:42→20:37)
[2017-02-15] MEDS: SENOKOT S TAB PO SCH ×2 (08:42→21:00)
[2017-02-15] MEDS: ENOXAPARIN 40 MG/0.4 ML SYRINGE (J1650) SC SCH (08:42)
--- NOTE | 2017-02-15 09:48 | REP ---
Clinical: Altered mental status and transient ischemic attack. Technique: García scale and color Doppler evaluation using linear high frequency transducer Findings: Two-dimensional garcía scale and color images demonstrate age-related intimal thickening and minimal plaquing with normal laminar flow and no appreciable narrowing. Color Doppler interrogation demonstrates normal arterial wave patterns and velocities with minimal spectral broadening. Normal flow direction is appreciated in the bilateral vertebral arteries. RIGHT (cm/s) LEFT (cm/s) ICA peak systolic velocity 81.7 111.8 ICA diastolic velocity 30.2 33.5 ECA peak systolic velocity 117.6 98.6 CCA peak systolic velocity 98.3 108.7 ICA/CCA ratio 0.83 1.03 Impression: No hemodynamically significant areas of narrowing or stenosis appreciated. Based on set standards narrowing falls within the less than 50% range. Signed by Sal Lugo MD 02/15/2017 09:40 A
[2017-02-15] MEDS: MORPHINE 30 MG TAB **MSIR PO PRN ×2 (12:34→13:21)
[2017-02-15] MEDS ORDERED: DIGOXIN INJ 0.5 MG/2 ML AMP (J1160) IV ONE (14:00)
--- NOTE | 2017-02-15 14:55 | IPN ---
DATE OF SERVICE: 02/15/2017 Mr. Ernst is more interactive today, awake, appropriately interactive, pleasantly conversant. Temperature 97.6, pulse 121, respiratory rate 14, blood pressure 148/81, 96% on 1 liter. Intake and output (I and O) notable for a positive fluid balance of 200. Body mass index is 37.5. Awake, appropriately interactive, pleasantly conversant. No complaints of pain during my interaction with him. Neck supple, thick. He has a large tumor on the posterior right hemithorax, which is cleanly dressed. There is some serous drainage inferiorly. Heart is in an irregular rate and rhythm, is tachycardic. Abdomen soft, doughy, nontender. White cell count 7.3, hemoglobin 8.5, platelets 261, albumin 6, creatinine 0.45. My assessment is as follows: This is a 66-year-old with end-stage sarcoma, who presented with metabolic encephalopathy and atrial fibrillation with rapid ventricular response (RVR). The plan is as follows: 1. Metabolic encephalopathy. This appears to have resolved. It may be related to use of opiates and benzodiazepines. The patient is currently pain-free but has requested access to opiates, as he does suffer from chronic pain. I believe it is reasonable in this setting to restart that. 2. The patient has metastatic sarcoma with end-stage disease. Will continue with topical Flagyl to the back, as well as dressing changes. 3. The patient has coronary artery disease. 4. The patient has atrial fibrillation with rapid ventricular response. Will add digoxin to beta blockade as tolerated. Blood pressure has been somewhat soft. He is anemic, which is most likely anemia of chronic disease. No role for transfusion at this point. 5. The patient has hypertension. 6. The patient has depression and anxiety. 7. The patient has appropriate deep venous thrombosis (DVT) prophylaxis. 8. The patient has restless legs syndrome. 9. The patient is currently FULL CODE, although given the extent of his disease, any attempts to resuscitate him might at this point be futile.
[2017-02-15] MEDS: ONDANSETRON 4MG/2ML VIAL (J2405) IV PRN (17:53)
[2017-02-15] MEDS ORDERED: METOPROLOL TART 12.5 MG PER 1/2 TAB PO ONE (20:45)
[2017-02-16] VITALS (26 sets, daily range): BP systolic 70–116; BP diastolic 51–74
[2017-02-16] MEDS ORDERED: METOPROLOL TART 25 MG TABLET PO ONE (00:15)
[2017-02-16] MEDS ORDERED: NS 500 ML IV ONE (00:15)
[2017-02-16] MEDS: NS 1,000 ML IV SCH ×3 (00:32→18:55)
[2017-02-16] MEDS: MORPHINE 30 MG TAB **MSIR PO PRN ×4 (00:34→23:35)
[2017-02-16] MEDS: ONDANSETRON 4MG/2ML VIAL (J2405) IV PRN (03:47)
[2017-02-16 05:55] LABS: MEAN CORPUSCULAR HEMOGLOBIN 27.5 pg (27.0-33.0); MEAN CORPUSCULAR HGB CONC 31.2 g/dl (32.0-36.5); RED CELL DISTRIBUTION WIDTH 16.9 % (11.5-14.5); WHITE BLOOD COUNT 6.8 K/mm3 (4.0-10.0)
[2017-02-16 06:34] LABS: ALBUMIN/GLOBULIN RATIO 0.57 (1.00-1.93); ALKALINE PHOSPHATASE 122 U/L (45-117); ALT/SGPT 8 U/L (12-78); ANION GAP 8 MEQ/L (8-16); AST/SGOT 9 U/L (15-37); BILIRUBIN,TOTAL 0.5 MG/DL (0.2-1.0); BLOOD UREA NITROGEN 5 MG/DL (7-18); CALCIUM LEVEL 7.8 MG/DL (8.8-10.2); CARBON DIOXIDE LEVEL 28 MEQ/L (21-32); CHLORIDE LEVEL 104 MEQ/L (98-107); CREATININE FOR GFR 0.42 MG/DL (0.70-1.30); GLOMERULAR FILTRATION RATE > 60.0 (>49); GLUCOSE, FASTING 86 MG/DL (80-110); SODIUM LEVEL 140 MEQ/L (136-145); TOTAL PROTEIN 5.5 GM/DL (6.4-8.2)
--- NOTE | 2017-02-16 08:18 | IPNPDOC ---
Text Note Date of Service The patient was seen on 02/16/17. NOTE Subjective: Patient seen and examined at bedside. Refuses MRI. No new complaints today. Anxious to return home. Objective: General: Sitting comfortably in chair. NAD HEENT: NC/AT, EOMI, PERRL Lungs: CTA B/L, large tumor on the posterior right hemithorax, dressings in place, area is C/D/I, with minimal serous drainage. Heart: +S1S2, tachy Abd: soft, NT, +BS Ext: peripheral edema Neuro: AAOx3, no focal deficits A/P 66 yo male admitting for AMS, lethargy, rapid afib with hx of end-stage metastatic sarcoma. 1. Metabolic encephalopathy. This appears to have resolved. It may be related to use of opiates and benzodiazepines. The patient is currently pain-free but has requested access to opiates, as he does suffer from chronic pain. D/C MRI and EEG. 2. The patient has metastatic sarcoma with end-stage disease. Will continue with topical Flagyl to the back, as well as dressing changes. 3. The patient has coronary artery disease, s/p [place], s/p stents x 3. 4. The patient has atrial fibrillation with rapid ventricular response. Received IV digoxin yesterday. Blood pressure has been somewhat soft. He is anemic, which is most likely anemia of chronic disease. Cardiology consultation appreciated. D/w Dr. Copeland, started amiodarone, continue digoxin and BB with parameters. 5. The patient has hypertension. 6. The patient has depression and anxiety. 7. The patient has appropriate deep venous thrombosis (DVT) prophylaxis. 8. The patient has restless legs syndrome. 9. The patient is currently FULL CODE. He has rescinded his previous DNR/DNI. Poor prognosis. VS,Fishbone, I+O VS, Fishbone, I+O Laboratory Tests 02/16/17 05:40 Red Blood Count 3.05 L, Mean Corpuscular Volume 88.0, Mean Corpuscular Hemoglobin 27.5, Mean Corpuscular Hemoglobin Concent 31.2 L, Red Cell Distribution Width 16.9 H, Calcium Level 7.8 L, Aspartate Amino Transf (AST/SGOT ) 9 L, Alanine Aminotransferase (ALT/SGPT) 8 L, Alkaline Phosphatase 122 H, Total Bilirubin 0.5, Total Protein 5.5 L, Albumin 2.0 L Vital Signs Date Time Temp Pulse Resp B/P (MAP) Pulse Ox O2 Delivery O2 Flow Rate FiO2 02/16/17 06:00 135 97/57 (70) 93 Room Air 02/16/17 04:00 98.1 20 02/15/17 16:00 1.0 I&O- Last 24 Hours up to 6 AM 02/16/17 06:00 Intake Total 3060 ml Output Total 1600 ml Balance 1460 ml ANJU FRY MD Feb 16, 2017 08:18
[2017-02-16] MEDS: rOPINIRole 1MG TAB PO SCH ×3 (08:28→21:27)
[2017-02-16] MEDS: DRONABINOL 2.5 MG CAP (MARINOL) PO SCH ×2 (08:28→21:26)
[2017-02-16] MEDS ORDERED: AMIODARONE HCL 150 MG in APPROPRIATE DILUENT 1 EA IV STA (08:28)
[2017-02-16] MEDS: ASPIRIN 81 MG ENTERIC TAB PO SCH (08:29)
[2017-02-16] MEDS: METOPROLOL TART 50 MG TAB PO SCH ×2 (08:29→21:27)
[2017-02-16] MEDS: SENOKOT S TAB PO SCH ×2 (08:30→21:00)
[2017-02-16] MEDS: ENOXAPARIN 40 MG/0.4 ML SYRINGE (J1650) SC SCH (08:30)
[2017-02-16] MEDS ORDERED: ONDANSETRON 4MG/2ML VIAL (J2405) As Ordered ONE (08:49)
[2017-02-16] MEDS: AMIODARONE 200 MG TAB (PACERONE) PO SCH ×3 (09:10→21:26)
[2017-02-16] MEDS: DIGOXIN 0.125 MG TAB PO SCH (09:11)
[2017-02-16] MEDS ORDERED: ONDANSETRON 4MG/2ML VIAL (J2405) IV ONE (09:30)
[2017-02-16] MEDS ORDERED: DRONABINOL 2.5 MG CAP (MARINOL) PO ONE (16:15)
--- NOTE | 2017-02-16 20:31 | CR ---
DATE OF CONSULTATION: 02/16/2017 REFERRING PHYSICIAN: Dr. Sullivan INDICATION: Atrial flutter. HISTORY OF THE PRESENT ILLNESS: Mr. Ernst is known to me. He is a pleasant 66-year-old man who has a multitude of medical problems, the dominant of which is progressive sarcoma that is widely metastatic. Actually, when I saw the patient in the office last time, which was on 01/12/2017, he signed DNI/R form in my office and informed me that he will actively seek help of hospice. But apparently in the interim, he has changed his mind and he was brought to this facility because of altered mental status, most likely related to pain medications. During this admission, he went into atrial flutter with rapid ventricular response earlier today. The ventricular rate was about 150 beats per minute. It was confirmed by 12-lead ECG, which reveals likely typical atrial flutter with 2:1 conduction. There are baseline QRS abnormalities with repolarization abnormalities of a nonspecific nature and probable old inferior wall myocardial infarction ([place]). He tolerated the tachycardia well, did not have any sensation of chest discomfort or palpitations. During my evaluation, he was comfortable. He tells me that besides his chronic pain in the chest, related to metastatic sarcoma that he is actually growing through the chest wall, he feels otherwise relatively well. PAST MEDICAL HISTORY: 1. Coronary artery disease. He received bare metal stent to left anterior descending (LAD) and right circumflex artery in June of this year for critical three-vessel coronary artery disease. He has known preserved left ventricular systolic function, last evaluation that I am aware of was in May 2016. 2. History of paroxysmal atrial fibrillation. 3. History of pulmonary emboli, status post inferior vena cava (IVC) filter. 4. History of Spindle cell melanoma. 5. Widely metastatic carcinoma of right buttocks that was treated initially by surgery, radiation and chemotherapy and eventually with chronic pleural drain on the right side. 6. Type 2 diabetes. 7. Hypertension. 8. Degenerative joint disease. 9. Remote history of morbid obesity. OUTPATIENT MEDICATIONS: Ventolin, aspirin 81 mg, Valium 10 mg every 8 hours as needed, Marinol 5 mg twice a day, gabapentin 800 mg three times a day, metoprolol 50 mg twice a day, Flagyl, morphine 15 mg every 6 hours, Zofran 8 mg every 8 hours as needed, prochlorperazine 10 mg every 6 hours as needed and Requip 1 mg three times a day. He has no known medication allergies. SURGICAL HISTORY: Positive for left breast lumpectomy, right knee surgery, left shoulder surgery, tonsillectomy, excision of soft tissue sarcoma from right buttocks and history of repeated surgery for right femoral fracture. FAMILY HISTORY: No longer relevant, but his father had coronary artery disease and mother hypertension. SOCIAL HISTORY: The patient is disabled. He is . He does not have any children. The nearest next of kin is his brother. He used to smoke remotely. REVIEW OF SYSTEMS: He denies recent fever, chills. He has had anorexia. There has been progressive weight loss. He has had chest discomfort that is chronic and localized principally to right posterior chest and his spine area. No palpitations. No syncope, near syncope. She has frequent nausea but no diarrhea. No julio cesar vomiting as of lately. He denies recent bleeding symptoms. There has not been peripheral edema. PHYSICAL EXAMINATION: Mr. Ernst is a 66-year-old man who appears older than his calendar age. He appears chronically but not acutely ill. He sits in intensive care unit (ICU) chair without any distress. Vital signs: Blood pressure 116/72, heart rate 156, irregular. Saturation is 91-93% on room air. His jugular venous pressure (JVP) is not elevated. I do not appreciate carotid bruit. Lungs are clear on the left. On the right, there is an exophytic mass that is covered by dressing, and there are diminished breath sounds throughout at least half of the field. Heart: Exam irregular tachycardia. I do not appreciate any gallop, rub or murmur. Abdomen is soft. No shifting dullness. The spleen seems to be palpable and liver is also palpable below the right margin. No significant edema. Neurologically, there is generalized weakness, but I do not appreciate any focal weakness. CBC reveals hemoglobin 8.4, hematocrit 26 and platelet count 266,000. Basic metabolic panel is normal. Liver function tests are normal but for marginally elevated alkaline phosphatase. CK and CK-MB are negative. BNP was 117 and albumin 2.0. His chest x-ray and CT of the chest revealed extensive mass in the right hemithorax with possible metastatic disease to the left lung. The brain was free of metastatic disease. ECG as per history of present illness. ASSESSMENT AND PLAN: Mr. Ernst is a 66-year-old man who has coronary artery disease, status post two-vessel bare metal stenting in June of this year and known paroxysmal atrial fibrillation, who presents with atrial flutter and rapid ventricular response. Fortunately, the arrhythmia is well tolerated. I do agree that at this point the risk of anticoagulation outweighs the benefit. I agree with continuation of use of digoxin, and I would give him amiodarone. Hopefully he will convert to sinus rhythm, but if not at least it will help to control his rate. I think that even though this is certainly a serious problem, I think that the dominant issue remains progressive sarcoma that is widely metastatic. I had a long discussion with the patient again as to why he changed his mind and wants to be resuscitated. It seems to me that the rationale behind this is not completely rational. I think that the patient will ultimately change his opinion. His stated argument was that he still has some legal issue that he has to resolve before he passes away. But he is well aware of his prognosis and in my opinion, if indeed he has cardiorespiratory arrest, it is not likely that resuscitation would bring anything to his survival or quality of life. I discussed plan with Dr. Sullivan. DAVID
--- NOTE | 2017-02-16 20:42 | ECGEPIP ---
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
--- NOTE | 2017-02-16 21:32 | ECGEPIP ---
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
[2017-02-16] MEDS ORDERED: zolPIDEM TARTRATE 5 MG TAB PO ONE (23:15)
[2017-02-17 04:28] VITALS: BP 99/63
[2017-02-17] MEDS: NS 1,000 ML IV SCH ×2 (04:59→17:48)
[2017-02-17] MEDS ORDERED: ONDANSETRON 4MG/2ML VIAL (J2405) IV ONE (05:00)
[2017-02-17] MEDS: PROCHLORPERAZINE 5 MG TAB (S0183) PO PRN ×2 (05:25→18:11)
[2017-02-17 05:45] LABS: MEAN CORPUSCULAR HEMOGLOBIN 27.8 pg (27.0-33.0); MEAN CORPUSCULAR HGB CONC 31.5 g/dl (32.0-36.5); MEAN CORPUSCULAR VOLUME 88.1 fl (80.0-96.0); WHITE BLOOD COUNT 6.4 K/mm3 (4.0-10.0)
[2017-02-17 06:26] LABS: ALBUMIN 2.1 GM/DL (3.2-5.2); ALBUMIN/GLOBULIN RATIO 0.58 (1.00-1.93); ALKALINE PHOSPHATASE 121 U/L (45-117); ALT/SGPT 7 U/L (12-78); ANION GAP 10 MEQ/L (8-16); AST/SGOT 10 U/L (15-37); BILIRUBIN,TOTAL 0.5 MG/DL (0.2-1.0); BLOOD UREA NITROGEN 5 MG/DL (7-18); CARBON DIOXIDE LEVEL 28 MEQ/L (21-32); CHLORIDE LEVEL 104 MEQ/L (98-107); CREATININE FOR GFR 0.41 MG/DL (0.70-1.30); GLOMERULAR FILTRATION RATE > 60.0 (>49); GLUCOSE, FASTING 88 MG/DL (80-110); SODIUM LEVEL 142 MEQ/L (136-145); TOTAL PROTEIN 5.7 GM/DL (6.4-8.2)
[2017-02-17 08:00] VITALS: BP 135/73
[2017-02-17] MEDS: ENOXAPARIN 40 MG/0.4 ML SYRINGE (J1650) SC SCH (08:08)
[2017-02-17] MEDS: SENOKOT S TAB PO SCH ×3 (08:08→21:00)
[2017-02-17] MEDS: DIGOXIN 0.125 MG TAB PO SCH (08:16)
[2017-02-17] MEDS: ASPIRIN 81 MG ENTERIC TAB PO SCH (08:16)
[2017-02-17] MEDS: DRONABINOL 2.5 MG CAP (MARINOL) PO SCH ×3 (08:16→17:46)
[2017-02-17] MEDS: rOPINIRole 1MG TAB PO SCH ×3 (08:16→21:19)
[2017-02-17] MEDS: AMIODARONE 200 MG TAB (PACERONE) PO SCH ×3 (08:16→21:18)
[2017-02-17] MEDS: METOPROLOL TART 50 MG TAB PO SCH ×2 (08:17→21:00)
[2017-02-17] MEDS: MORPHINE 30 MG TAB **MSIR PO PRN ×2 (08:18→18:00)
--- NOTE | 2017-02-17 08:49 | IPN ---
DATE: 02/17/2017 Mr. Ernst is feeling about the same. It looks like he had a relatively decent night. His heart rate remains fast, but better than yesterday, typically around 120 beats per minute. Blood pressure this morning is 135/73. He is afebrile. Saturation is 94% on room air. His fluid balance was about 1700 positive yesterday. Weight has not been documented yet this morning. He is alert and oriented and appropriate. His JVP is not up. Lungs are clear on the left, very diminished on the right. Heart exam reveals irregular tachycardia. No gallop or rub. Abdomen is soft, but nontender. There is minimal peripheral edema. Neurologically. he is intact. Laboratory-willard, hemoglobin 8.5, hematocrit 27, platelet count 266,000. Basic metabolic panel is normal. ASSESSMENT/PLAN: Mr. Ernst is a 66-year-old man who has coronary artery disease with bare metal stents and two coronary arteries from June of this year and known paroxysmal atrial fibrillation/flutter. 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 He came with altered mental status likely related to narcotics and developed atrial flutter with 2:1 conduction while in the hospital. So far, it has not been completely rate-controlled, but we are making progress in this regard. I am going to discontinue digoxin fearing its potential toxicity. I will continue amiodarone. Even though there is interaction between amiodarone and most of the antiemetics, I will allow their use because in his condition certainly the comfort takes much priority over survival, but I do expect that as the amiodarone builds up in his system he will get better. The next issue that came in our discussion was a code status. The patient is well aware that he is dying and he knows that his life expectancy is very short, but simultaneously insists on being full code while in the hospital. Even though he acknowledges that this is not a rational decision, he wants to leave it like that. Unfortunately, I think it is not in his best interest, but I could not change his mind. Nevertheless, he says that shortly after discharge after he gets his affairs in order he plans to initiate hospice.
[2017-02-17] MEDS: DOCUSATE SODIUM 100 MG CAP PO SCH ×2 (09:20→21:19)
--- NOTE | 2017-02-17 10:18 | IPNPDOC ---
Text Note Date of Service The patient was seen on 02/17/17. NOTE Subjective: Patient seen and examined at bedside. No new medical complaints today. Objective: General: Sitting comfortably in chair. NAD HEENT: NC/AT, EOMI, PERRL Lungs: CTA B/L, large tumor on the posterior right hemithorax, dressings in place, area is C/D/I, with minimal serous drainage. Heart: +S1S2, tachy Abd: soft, NT, +BS Ext: peripheral edema Neuro: AAOx3, no focal deficits A/P 66 yo male admitting for AMS, lethargy, rapid afib with hx of end-stage metastatic sarcoma. 1. Metabolic encephalopathy. This appears to have resolved. Likely related to use of opiates and benzodiazepines. The patient is currently pain-free but has requested access to opiates, as he does suffer from chronic pain. 2. The patient has metastatic sarcoma with end-stage disease. Will continue with topical Flagyl to the back, as well as dressing changes. 3. The patient has coronary artery disease, s/p WV, s/p BMS x 3. 4. The patient has atrial fibrillation with rapid ventricular response. Blood pressure improved. Digoxin discontinued. Continue amiodarone and metoprolol. He is anemic, which is most likely anemia of chronic disease. Cardiology consultation appreciated. 5. The patient has hypertension. 6. The patient has depression and anxiety. 7. The patient has appropriate deep venous thrombosis (DVT) prophylaxis. 8. The patient has restless legs syndrome. 9. The patient is currently FULL CODE. He has rescinded his previous DNR/DNI. Poor prognosis. VS,Fishbone, I+O VS, Fishbone, I+O Laboratory Tests 02/17/17 05:34 Red Blood Count 3.06 L, Mean Corpuscular Volume 88.1, Mean Corpuscular Hemoglobin 27.8, Mean Corpuscular Hemoglobin Concent 31.5 L, Red Cell Distribution Width 17.0 H, Calcium Level 8.0 L, Aspartate Amino Transf (AST/SGOT ) 10 L, Alanine Aminotransferase (ALT/SGPT) 7 L, Alkaline Phosphatase 121 H, Total Bilirubin 0.5, Total Protein 5.7 L, Albumin 2.1 L Vital Signs Date Time Temp Pulse Resp B/P (MAP) Pulse Ox O2 Delivery O2 Flow Rate FiO2 02/17/17 08:50 20 94 Room Air 02/17/17 08:17 124 135/73 02/17/17 08:00 98.6 02/16/17 13:00 2.0 I&O- Last 24 Hours up to 6 AM 02/17/17 06:00 Intake Total 2920 ml Output Total 570 ml Balance 2350 ml ANJU FRY MD Feb 17, 2017 10:18
[2017-02-17 16:00] VITALS: BP 109/56
[2017-02-17] MEDS ORDERED: PROCHLORPERAZINE 5 MG TAB (S0183) As Ordered ONE (18:08)
[2017-02-17 21:17] VITALS: BP 97/55
[2017-02-18] VITALS (10 sets, daily range): BP systolic 98–114; BP diastolic 50–60
[2017-02-18] MEDS: NS 1,000 ML IV SCH ×2 (03:24→11:45)
[2017-02-18 05:37] LABS: MEAN CORPUSCULAR HEMOGLOBIN 27.2 pg (27.0-33.0); MEAN CORPUSCULAR HGB CONC 30.6 g/dl (32.0-36.5); MEAN CORPUSCULAR VOLUME 89.1 fl (80.0-96.0); RED CELL DISTRIBUTION WIDTH 17.1 % (11.5-14.5); WHITE BLOOD COUNT 6.4 K/mm3 (4.0-10.0)
[2017-02-18] MEDS: MORPHINE 30 MG TAB **MSIR PO PRN (05:48)
[2017-02-18 06:05] LABS: ALBUMIN 2.1 GM/DL (3.2-5.2); ALBUMIN/GLOBULIN RATIO 0.62 (1.00-1.93); ALKALINE PHOSPHATASE 115 U/L (45-117); ALT/SGPT 7 U/L (12-78); ANION GAP 8 MEQ/L (8-16); AST/SGOT 11 U/L (15-37); BILIRUBIN,TOTAL 0.5 MG/DL (0.2-1.0); BLOOD UREA NITROGEN 4 MG/DL (7-18); CALCIUM LEVEL 7.9 MG/DL (8.8-10.2); CARBON DIOXIDE LEVEL 28 MEQ/L (21-32); CHLORIDE LEVEL 105 MEQ/L (98-107); CREATININE FOR GFR 0.44 MG/DL (0.70-1.30); GLOMERULAR FILTRATION RATE > 60.0 (>49); GLUCOSE, FASTING 87 MG/DL (80-110); MAGNESIUM LEVEL 1.9 MG/DL (1.8-2.4); POTASSIUM SERUM 3.8 MEQ/L (3.5-5.1); SODIUM LEVEL 141 MEQ/L (136-145); TOTAL PROTEIN 5.5 GM/DL (6.4-8.2)
--- NOTE | 2017-02-18 07:19 | IPN ---
DATE: 02/18/2017 Mr. Ernst is feeling about the same as yesterday. Fortunately, he converted back to sinus rhythm and has maintained its since. He does admit that he feels mildly short of breath when he is lying flat and feels very tired. He tells me that in general it means that his hemoglobin is getting low. Vital Signs: Blood pressure 103/57. Heart rate has been in the 70s. He is afebrile. Saturation 92% on room air. His fluid balance yesterday was again positive. No documented weight this morning. He is alert, oriented and appropriate. His JVP is not up. Lungs again are clear on the left, but diminished on the right. Heart exam reveals a regular rhythm. No gallop or rub. Abdomen is soft. No tenderness. There is trace peripheral edema. Neurologically, he is intact. Laboratory-willard, basic metabolic panel remains normal including liver function tests. Albumin is 2.1. CBC reveals hemoglobin 9.3, hematocrit 27 and platelet count 263,000, WBC count is 6.4 ASSESSMENT/PLAN: Mr. Ernst is a 66-year-old man who has metastatic sarcoma that originated in his buttocks and now is widely metastatic, but most prominently there is a large lesion in his right lung. He came in with altered mental status likely related to overdose on narcotics that he has been using for pain control. As a complication, he developed atrial flutter with 2:1 conduction, but eventually converted to sinus rhythm after we initiated amiodarone. At this point from my perspective, the patient can go home. I would discharge him only on probably 200 mg of amiodarone daily and I would discontinue the metoprolol and certainly the digoxin. I believe that the risks of anticoagulation are far higher than the potential benefits. The patient is well aware that he is dying and he has to take care of some affairs regarding his former , but he intends to immediately initiate hospice afterwards depending on cooperation of his family. I do not have any additional recommendations other than consideration can be given to transfusing 1 unit of packed red blood cells before he goes home. He says that he usually perks up after a transfusion and even though the hemoglobin is not severely low it has been trending down and this has been the case numerous times in the past.
[2017-02-18] MEDS ORDERED: AMIO200T PO (07:54)
[2017-02-18] MEDS: DOCUSATE SODIUM 100 MG CAP PO SCH (08:29)
[2017-02-18] MEDS: SENOKOT S TAB PO SCH (08:29)
[2017-02-18] MEDS: METOPROLOL TART 50 MG TAB PO SCH (08:30)
[2017-02-18] MEDS: AMIODARONE 200 MG TAB (PACERONE) PO SCH ×2 (08:30→15:22)
[2017-02-18] MEDS: rOPINIRole 1MG TAB PO SCH ×2 (08:30→15:22)
[2017-02-18] MEDS: PROCHLORPERAZINE 5 MG TAB (S0183) PO PRN ×2 (08:30→14:12)
[2017-02-18] MEDS: ASPIRIN 81 MG ENTERIC TAB PO SCH (08:30)
[2017-02-18] MEDS: DRONABINOL 2.5 MG CAP (MARINOL) PO SCH ×2 (08:45→12:17)
[2017-02-18] MEDS: ENOXAPARIN 40 MG/0.4 ML SYRINGE (J1650) SC SCH (08:45)
[2017-02-18] MEDS ORDERED: SODIUM CHLORIDE 0.9% INJ 10 ML SYR IV SCH (09:00)
--- NOTE | 2017-02-18 11:45 | DS.PDOC ---
Discharge Summary General Date of Admission Feb 14, 2017 at 20:38 Date of Discharge 02/18/17 Specialist/Consultants Involve: Becca Copeland MD Discharge Summary PROCEDURES PERFORMED DURING STAY: [None]. DISCHARGE DIAGNOSES: 1. Atrial flutter/fib. 2. Metastatic carcinoma s/p surgery, RT, chemo 3. CAD s/p BMS to LAD/RCx 4. PAfib 5. 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 DM 8. HTN 9. DJD 10. Obesity COMPLICATIONS/CHIEF COMPLAINT: Ams,A-Fibb With Rapid Ventricular Response. HOSPITAL COURSE: 66 yo male presented for AMS. PMHx of widely metastatic progressive sarcoma, for which patient was originally DNR/DNI and in process of hospice care, however has rescinded and is full code. Patient admitted for further evaluation of AMS, and found to be in atrial flutter. Mentation improved and returned to baseline, deemed secondary to unintentional opioid overdose over the weekend. Cardiology consultation for atrial flutter, which responded well to digoxin and subsequent amiodarone therapy. Given his extremely poor prognosis, the risks of anticoagulation are greater than benefits , as such has not been prescribed. DISCHARGE MEDICATIONS: Please see below. ALLERGIES: Please see below. PHYSICAL EXAMINATION ON DISCHARGE: VITAL SIGNS: Please see below. GENERAL: NAD HEENT: NC/AT, EOMI, PERRL NECK: supple CARDIOVASCULAR EXAMINATION: +S1S2, irregularly irregular RESPIRATORY EXAMINATION: CTA B/L, diminished ABDOMINAL EXAMINATION: soft, NT, +BS EXTREMITIES: peripheral lower extremity edema SKIN: no rashes NEUROLOGICAL EXAMINATION: no gross focal deficits PSYCHIATRIC EXAMINATION: AAOx3 LABORATORY DATA: Please see below. IMAGING: PROGNOSIS: Very poor prognosis ACTIVITY: [As tolerated]. DIET: Regular DISPOSITION: Discharge home, reinstated home services [facility]. DISCHARGE INSTRUCTIONS: 1. Medications as directed. 2. Follow up with PCP as scheduled. DISCHARGE CONDITION: [Stable]. TIME SPENT ON DISCHARGE: Greater than 30 minutes. Vital Signs/I&Os Vital Signs Date Time Temp Pulse Resp B/P (MAP) Pulse Ox O2 Delivery O2 Flow Rate FiO2 02/18/17 11:30 97.7 63 18 105/57 (73) 95 Room Air 02/18/17 08:00 2.0 I&O- Last 24 Hours up to 6 AM 02/18/17 05:59 Intake Total 3900 ml Output Total 1100 ml Balance 2800 ml Laboratory Data Labs 24H Laboratory Tests 2 02/18/17 05:30: Anion Gap 8, Glomerular Filtration Rate > 60.0, Blood Urea Nitrogen 4L, Creatinine 0.44L, Sodium Level 141, Potassium Level 3.8, Chloride Level 105, Carbon Dioxide Level 28, Calcium Level 7.9L, Aspartate Amino Transf (AST/SGOT) 11L, Alanine Aminotransferase (ALT/SGPT) 7L, Alkaline Phosphatase 115, Total Bilirubin 0.5, Total Protein 5.5L, Albumin 2.1L, Magnesium Level 1.9, Albumin/ Globulin Ratio 0.62L CBC/BMP Laboratory Tests 02/18/17 05:30 Red Blood Count 3.03 L, Mean Corpuscular Volume 89.1, Mean Corpuscular Hemoglobin 27.2, Mean Corpuscular Hemoglobin Concent 30.6 L, Red Cell Distribution Width 17.1 H, Calcium Level 7.9 L, Aspartate Amino Transf (AST/SGOT ) 11 L, Alanine Aminotransferase (ALT/SGPT) 7 L, Alkaline Phosphatase 115, Total Bilirubin 0.5, Total Protein 5.5 L, Albumin 2.1 L Microbiology Microbiology 02/15/17 Blood Culture - Preliminary, Resulted No Growth after 72 hours. All specime... 02/14/17 Blood Culture - Preliminary, Resulted No Growth after 72 hours. All specime... 02/14/17 Urine Culture - Final, Complete Discharge Medications Scheduled Amiodarone HCl (Amiodarone HCl) 200 Mg Tab, 200 MG PO DAILY Aspirin (Aspirin 81) 81 Mg Tab, 81 MG PO DAILY, (Reported) Dronabinol (Marinol) 5 Mg Cap, 5 MG PO BID, (Reported) Gabapentin (Gabapentin) 800 Mg Tab, 800 MG PO TID, (Reported) Metronidazole (Flagyl) 250 Mg Tab, 250 MG TOP DAILY, (Reported) Ropinirole Hydrochloride (Ropinirole HCl) 1 Mg Tab, 1 MG PO TID, (Reported) Scheduled PRN Albuterol Sulfate (Ventolin Hfa) 200 Puff/8 Gm Aers, 2 PUFF INH Q4H PRN for SHORTNESS OF BREATH, (Reported) Diazepam (Diazepam) 10 Mg Tab, 10 MG PO Q8H PRN for ANXIETY, (Reported) Morphine Sulfate (Morphine Sulfate) 15 Mg Tab, 15 MG PO Q6H PRN for PAIN, ( Reported) Prochlorperazine Maleate (Prochlorperazine Maleate) 10 Mg Tab, 10 MG PO Q6H PRN for NAUSEA OR VOMITING, (Reported) Miscellaneous Medications [Patient Comment] , (Reported) MEDICATION LIST OBTAINED FROM [facility] AND [facility] MED LIST. PATIENT IS UNSURE OF MEDS AT THIS TIME Allergies Coded Allergies: No Known Drug Allergy (Verified Allergy, Unknown, 05/08/16) ANJU FRY MD Feb 18, 2017 11:45
[2017-02-18] MEDS ORDERED: SODIUM CHLORIDE 0.9% INJ 10 ML SYR IV PRN (15:15)
--- NOTE | 2017-02-18 21:14 | ECGEPIP ---
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
== END 2017-02-18 15:35 | disposition home health service (06) | DRG 917 ==
LOC: EDBD 17:23 → M ED 17:23 → M ED INP 20:38 → M ICU 22:00
PROVIDERS: ADMIT Hospitalist; ATTEND Internal Medicine
PROC: 30253N1 (ICD-10-PCS; principal; 2017-02-18)
DX: T42.4X1A Poisoning by benzodiazepines, accidental (unintentional), initial encounter (principal); G92 Toxic encephalopathy; C49.6 Malignant neoplasm of connective and soft tissue of trunk, unspecified; I48.92 Unspecified atrial flutter; C78.01 Secondary malignant neoplasm of right lung; T40.2X1A Poisoning by other opioids, accidental (unintentional), initial encounter; R53.83 Other fatigue; G25.81 Restless legs syndrome; F41.9 Anxiety disorder, unspecified; F32.9 Major depressive disorder, single episode, unspecified; I48.0 Paroxysmal atrial fibrillation; I25.10 Atherosclerotic heart disease of native coronary artery without angina pectoris; E78.5 Hyperlipidemia, unspecified; E11.9 Type 2 diabetes mellitus without complications; D63.0 Anemia in neoplastic disease; M19.90 Unspecified osteoarthritis, unspecified site; I10 Essential (primary) hypertension; I25.2 Old myocardial infarction; Z79.899 Other long term (current) drug therapy; Z79.891 Long term (current) use of opiate analgesic; Z95.5 Presence of coronary angioplasty implant and graft; Z86.711 Personal history of pulmonary embolism; Z95.828 Presence of other vascular implants and grafts; Z92.3 Personal history of irradiation; Z92.21 Personal history of antineoplastic chemotherapy; Z79.82 Long term (current) use of aspirin; Z87.891 Personal history of nicotine dependence; Y99.8 Other external cause status